=== PATIENT | male | born 1935 | race Caucasian/White ===

== ENCOUNTER 2023-02-28 13:07 | Outpatient (CLI) | payer MEDICARE, SELFPAY ==
--- NOTE | 2023-02-28 13:22 | ECG_ITS ---
Measurements Intervals [place] Rate: 58 P: AK: 0 QRS: 75 QRSD: 117 T: 41 QT: 457 QTc: 450 Interpretive Statements JUNCTIONAL RHYTHM QRS COMPLEXES CHANGES FROM INCOMPLETE RIGHT BUNDLE BRANCH BLOCK TO LBBB ABNORMAL ECG NO PREVIOUS ECG AVAILABLE FOR COMPARISON Electronically Signed On 02-28-2023 14:48:41 CDT by Gulshan Christine D.O.
[2023-02-28 13:54] LABS: INR 1.2; Prothrombin Time 15.3 Seconds (11.1-14.7)
[2023-02-28 13:55] LABS: Partial Thromboplastin Time 31.9 SECONDS (22.3-36.8)
[2023-02-28 13:59] LABS: Anion Gap 9 mmol/L (8-16); Blood Urea Nitrogen 27 mg/dL (9-20); Calcium 8.2 mg/dL (8.4-10.2); Carbon Dioxide 25 mmol/L (22-30); Chloride 101 mmol/L (98-107); Estimated Glomerular Filt Rate 58; Glucose 155 mg/dL (65-110); Potassium 4.8 mmol/L (3.4-5.0); Sodium 135 mmol/L (137-145)
== END 2023-02-28 13:08 | disposition home or self-care (01) ==
LOC: ANHSURGERY 13:16
PROVIDERS: Anesthesiology; PCP Internal Medicine Infectious Disease; Visit Provider Urology
DX: Z51.81 Encounter for therapeutic drug level monitoring (principal); E11.9 Type 2 diabetes mellitus without complications; I10 Essential (primary) hypertension; Z01.818 Encounter for other preprocedural examination
CPT/HCPCS: 36415; 80048; 85610; 85730; 93005

== ENCOUNTER 2023-03-01 01:43 | Day surgery (SDC) | payer MEDICARE, SELFPAY ==
--- NOTE | 2023-02-27 16:22 | PC.NURSE ---
Report to the Outpatient Waiting Room, entrance under the green pavilion located off [facility], at time __9:15AM on date __03/01/23 . Planned Procedure Time: __11:15AM . Time changes happen often and if your time is changed the preop area will call you the afternoon before. - You and your visitor will be asked to self-screen and do not enter if you have any COVID symptoms. - A mask is optional within the hospital at this time. Patients may have clear liquids (water, carbonated beverages, clear teas, apple juice) until 3 hours prior to surgery with a maximum of 20 ounces. - No food from midnight until time of surgery Take the following medications with a SIP of water the morning of surgery: __AMLODIPINE, METOPROLOL DO NOT STOP ANY OF YOUR OTHER PRESCRIPTION MEDICATIONS PRIOR TO SURGERY ?EXCEPT THE FOLLOWING Medications to discontinue per physician ____HOLD COUMADIN 7 DAYS PRE-OP PER DR GRAJEDA- LAST DOSE 02/22/23, HOLD ALL VITAMINS/SUPPLEMENT 3 DAYS PRE-OP- LAST DOSE 02/26/23 PER ANESTHESIA. Please no make-up, nail new zealander, hairspray, perfume, deodorant, or body powder the day of surgery. No jewelry (including any body piercings) or valuables the day of surgery, leave them at home. Please take a shower or bath the night before, or the morning of, surgery with an antibacterial soap. Wear comfortable, loose fitting clothing. Children are encouraged to wear pajamas. - Jewelry must be removed prior to entering the operating room. Rings and piercings that are not removed may be cut off. - The hospital will not accept responsibility for valuables. - Please leave all valuables, including medications, at home the day of surgery. If you are going home after surgery, a licensed commercial driver's license driver must drive you home. - NO public transportation without another adult if you receive anesthesia. - We recommend that an adult stay with you for 24 hours following discharge. - We also recommend that you do not drive, make important decision, drink alcoholic beverages, or take any drugs that were not prescribed by your health care provider for at least 24 hours after your discharge time. Follow any additional instructions given to you from your surgeon. If you or anyone in your household have experienced Covid symptoms in the past week, please notify your surgeon or the nurse liaison at the phone number below for possible testing. Telephone instructions given to __PATIENT and asked if any additional questions and then verbalized understanding. Patient advised to call surgeon office or pre surgery nurse liaison [phone] if any additional questions.
[2023-03-01] VITALS (10 sets, daily range): BP systolic 109–152; BP diastolic 53–90; PULSE 64–75; RESP 11–24; TEMP 36.6–36.8; O2SAT 90–99
--- NOTE | 2023-03-01 06:44 | WPDHPUPDATE1 ---
History and Physical Update Update Date/Time: 03/01/23 06:44 History and Physical has been reviewed, including an updated exam of the patient. There are NO changes in the patient's condition. Risks, benefits, and alternatives have been discussed and questions answered. Patient agrees to proceed with procedure.
[2023-03-01 10:06] LABS: Glucose Point of Care 179 mg/dl (65-105)
[2023-03-01] MEDS: LACTATED RINGERS 1,000 ML 30 ML IV CONT (10:09)
[2023-03-01 10:16] LABS: INR 1.1; Prothrombin Time 14.7 Seconds (11.1-14.7)
--- NOTE | 2023-03-01 10:24 | SUR.PREOP ---
pt with oozing wound to left calf,venous status to lower legs. knee high teds not applied.
--- NOTE | 2023-03-01 10:26 | WPDANESEPPF ---
Anes - Initial Pre Proc Eval Procedure: Operation Date: 03/01/23 11:15 Proposed Procedures p Trans Urethral Resection Bladder Tumor with Gemcitabine Instillation - Robert Cevallos MD Date/Time: 03/01/23 10:26 Surgeon: Robert Cevallos MD Pre Op Diagnosis: bladder tumor Patient Data Age: 87 Gender: M Height: 1.78 m Weight: 95.5 kg Last Vital Signs Temp 36.6 C 03/01/23 09:37 Pulse 64 03/01/23 09:37 Resp 16 03/01/23 09:37 BP 144/58 H 03/01/23 09:37 Pulse Ox 98 03/01/23 09:37 O2 Del Method Room Air 03/01/23 09:37 Allergies Allergy/AdvReac Type Severity Reaction Status Date / Time No Known Allergies Allergy Verified 03/01/23 10:10 Home Medications Medication Instructions Recorded Confirmed Type acetaminophen 500 mg capsule 500 mg PO Q6H PRN Pain 02/27/23 03/01/23 History amlodipine 10 mg tablet 10 mg PO QAM 02/27/23 03/01/23 History cyanocobalamin (vitamin B-12) 1,000 mcg PO DAILY 02/27/23 03/01/23 History 1,000 mcg capsule finasteride 5 mg tablet 5 mg PO QAM 02/27/23 03/01/23 History insulin detemir U-100 100 unit/mL 10 unit subcut HS 02/27/23 03/01/23 History (3 mL) subcutaneous pen (Levemir FlexPen) lisinopril 40 mg tablet 40 mg PO QAM 02/27/23 03/01/23 History metformin 1,000 mg tablet 1,000 mg PO BID 02/27/23 03/01/23 History metoprolol tartrate 25 mg tablet 25 mg PO BID 02/27/23 03/01/23 History oxybutynin chloride 10 mg 10 mg PO QAM 02/27/23 03/01/23 History tablet,extended release 24 hr pravastatin 10 mg tablet 10 mg PO DAILY 02/27/23 03/01/23 History sitagliptin phosphate 100 mg 100 mg PO QAM 02/27/23 03/01/23 History tablet (Januvia) vit A 7,160 unit-vit C 113 mg-vit 1 tablet PO BID 02/27/23 03/01/23 History E 100 [id number] tablet warfarin 3 mg tablet 3 mg PO EVERY OTHER DAY 02/27/23 03/01/23 History warfarin 4 mg tablet 4 mg PO EVERY OTHER DAY 02/27/23 03/01/23 History Laboratory Tests 03/01/23 03/01/23 09:49 10:03 PT 14.7 Seconds (11.1-14.7) INR 1.1 POC Capillary Glucose 179 H mg/dl (65-105) Patient hx anesthesia problems: none Family hx anesthesia problems: none Results Review: All pre-operative results and documents have been reviewed as part of the pre-operative evaluation. [facility] Past Medical History Medical History (Updated 03/01/23 @ 10:26 by Gerhard Travis MD) Bladder cancer CAD (coronary artery disease) HTN (hypertension) ANGELIQUE (obstructive sleep apnea) Surgical History Surgical History (Updated 03/01/23 @ 10:26 by Gerhard Travis MD) Hx of CABG Social History Social History Smoking packs per day: 1.5 Smoking cigarettes per day: 30.0 Years smoked: 25 Smoking pack-years: 37.50 Smoking status: Former smoker Tobacco type: cigarettes Smoking end date: 03/31/74 Substance use: never Living arrangements: with family Additional living arrangements comments: Spiritual care concerns: No Anes - Eval Final PreProcedure Day of Procedure 03/01/23 10:26 Patient weight: obese Heart: irregular rhythm Lungs: clear to auscultation Airway: Mallampati scale class II Neurological: alert and oriented Last oral intake: >/= 8 hours ASA classification: III Emergent: no Anesthetic plan: proceed Anesthesia type and monitoring: general LMA and standard monitoring Results Review: All pre-operative results and documents have been reviewed as part of the pre-operative evaluation. Informed Consent: The patient's anesthetic plan and its attendant risks and benefits were discussed with the patient/family/POA. Questions were solicited and answers provided to the satisfaction of the patient/family/POA.
--- NOTE | 2023-03-01 11:41 | SUR.PREOP ---
pt instructed to talk with primary md about open wound to right lower leg
[2023-03-01] MEDS: ceFAZolin 2 GM/D5W 50 ML 2 GM/50 ML BAG IVPB (11:54)
[2023-03-01] MEDS: SODIUM CHLORIDE 0.9% IV 23.7 ML, GEMCITABINE HCL 1,000 MG BLADDER ×2 (12:23→12:24)
[2023-03-01 12:42] LABS: Glucose Point of Care 172 mg/dl (65-105)
[2023-03-01] MEDS: fentaNYL CITRATE INJ (*CRX) 100 MCG/2 ML VIAL 25 MCG IV PUSH ×2 (12:45→12:50)
--- NOTE | 2023-03-01 12:50 | W.PM.PROC2 ---
Procedure Note - Detailed Date of Procedure 03/01/23 Pre-op Diagnosis Bladder tumor Post-op Diagnosis Same Procedure Performed TURBT medium Surgeon Robert Cevallos MD Anesthesia General Description of Procedure patient was brought to the operative suite was prepped and draped in routine sterile fashion while in dorsal lithotomy position. Twenty-four F resectoscope was placed in his bladder. 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 There was no median lobe. His bladder shows slight trabeculation. The entire bladder mucosa appears perfectly normal with the exception of a somewhat solid, approximately 3 cm neoplastic growth in the right anterior lateral bladder wall. I resected this using the loop electrode with an attempt made to include detrusor muscle for pathological evaluation invasion. The base and periphery cauterized both with the loop and I rollerball electrode. I opted not to do random biopsies given the normal nature of the remainder of his bladder. This neoplasm, although solid, his very well demarcated. It is in a position that would be borderline amenable to a partial cystectomy. Before considering that, if it is muscle invasive, I would recommend re-resection of the bladder tumor base.
--- NOTE | 2023-03-01 12:59 | W.PM.PROC2 ---
Procedure Note - Detailed Date of Procedure 03/01/23 Pre-op Diagnosis Bladder tumor Post-op Diagnosis Same Procedure Performed Gemcitabine installation Surgeon Robert Cevallos MD Anesthesia None Description of Procedure With the patient in the supine position, a 16F Echeverria catheter is placed using sterile technique. Using a protective facemask, gown and double layer of gloves Gemcitabine 2gm in 100cc saline is administered through the catheter/into the bladder. The catheter is then plugged. Patient was instructed to lie supine x20min, then to roll both the left and right x20 min. each. Total dwell time will be 60 min., after which the bladder will be drained and catheter removed.
[2023-03-01] MEDS: ONDANSETRON INJ 4 MG/2 ML VIAL IV PUSH (13:00)
--- NOTE | 2023-03-01 13:56 | SUR.PHASEI ---
1355 - mendez catheter was drained. 170mL output. Pt. was backfilled with 150mL sterile saline and mendez was discontinued at that time. Pt. is currently attempting to void.
== END 2023-03-01 15:04 | disposition home or self-care (01) ==
PROVIDERS: Anesthesiology; PCP Internal Medicine Infectious Disease; Visit Provider Urology
PROC: 0TBB8ZZ Excision of Bladder, Via Natural or Artificial Opening Endoscopic (ICD-10-PCS; CPT 52235; principal; 2023-03-01 11:15)
DX: C67.8 Malignant neoplasm of overlapping sites of bladder (principal); I25.10 Atherosclerotic heart disease of native coronary artery without angina pectoris; I10 Essential (primary) hypertension; G47.33 Obstructive sleep apnea (adult) (pediatric); Z87.891 Personal history of nicotine dependence; E66.9 Obesity, unspecified; Z68.30 Body mass index [BMI] 30.0-30.9, adult; Z79.4 Long term (current) use of insulin; Z79.84 Long term (current) use of oral hypoglycemic drugs; Z79.01 Long term (current) use of anticoagulants
CPT/HCPCS: 52235; 36415; 51720; 82948; 85610; 88305; 88342; J0690; J1100; J2405; J2704; J3010; J7120; J9201

== ENCOUNTER 2023-04-19 01:32 | Day surgery (SDC) | payer MEDICARE, SELFPAY ==
[2023-04-10 12:48] VITALS: BMI 30.7
--- NOTE | 2023-04-10 13:06 | PC.NURSE ---
Report to the Outpatient Waiting Room, entrance under the green pavilion located off [facility], at time __9:00AM on date __04/19/23 . Planned Procedure Time: ___11:00AM . Time changes happen often and if your time is changed the preop area will call you the afternoon before. - You and your visitor will be asked to self-screen and do not enter if you have any COVID symptoms. - A mask is optional within the hospital at this time. Patients may have clear liquids (water, carbonated beverages, clear teas, apple juice) until 3 hours prior to surgery with a maximum of 20 ounces. - No food from midnight until time of surgery Take the following medications with a SIP of water the morning of surgery: ___AMLODIPINE, METOPROLOL DO NOT STOP ANY OF YOUR OTHER PRESCRIPTION MEDICATIONS PRIOR TO SURGERY ?EXCEPT THE FOLLOWING Medications to discontinue per physician __HOLD COUMADIN 7 DAYS PRE-OP PER DR GRAJEDA(PER PT & )- LAST DOSE 04/11/23. HOLD ALL VITAMINS/SUPPLEMENTS 3 DAYS PRE-OP-Date to take last dose____04/15/23 Please no make-up, nail turkmen, hairspray, perfume, deodorant, or body powder the day of surgery. No jewelry (including any body piercings) or valuables the day of surgery, leave them at home. Please take a shower or bath the night before, or the morning of, surgery with an antibacterial soap. Wear comfortable, loose fitting clothing. Children are encouraged to wear pajamas. - Jewelry must be removed prior to entering the operating room. Rings and piercings that are not removed may be cut off. - The hospital will not accept responsibility for valuables. - Please leave all valuables, including medications, at home the day of surgery. If you are going home after surgery, a licensed truck driver rubbish collector must drive you home. - NO public transportation without another adult if you receive anesthesia. - We recommend that an adult stay with you for 24 hours following discharge. - We also recommend that you do not drive, make important decision, drink alcoholic beverages, or take any drugs that were not prescribed by your health care provider for at least 24 hours after your discharge time. Follow any additional instructions given to you from your surgeon. If you or anyone in your household have experienced Covid symptoms in the past week, please notify your surgeon or the nurse liaison at the phone number below for possible testing. Telephone instructions given to __PATIENT & WIFE and asked if any additional questions and then verbalized understanding. Patient advised to call surgeon office or pre surgery nurse liaison [phone] if any additional questions.
--- NOTE | 2023-04-17 06:46 | PM.HPGS ---
History of Present Illness History of Present Illness Consent: Risks, benefits, and alternatives have been discussed and questions answered. Patient agrees to proceed with procedure. Chief complaint: bladder tumor Narrative: Rudy Nino is a 88 year old male who developed gross hematuria in January 2023. CT urogram demonstrated normal upper urinary tracts but a mass in his bladder. 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 After discussion of options he has elected for re-resection of the bladder tumor base. He is aware the risk including, but not limited to, adverse cardiopulmonary events, injury to the integrity of his bladder wall requiring long-term catheterization or open procedure. He is also aware that this may not be a definitive management for muscle invasive bladder cancer and that additional therapy may be needed. Review of Systems Review of Systems: All systems reviewed & are unremarkable except as noted in HPI and below PMFSH Past Medical History Medical History (Updated 03/01/23 @ 12:58 by Robert Cevallos MD) Bladder cancer CAD (coronary artery disease) HTN (hypertension) ANGELIQUE (obstructive sleep apnea) Surgical History Surgical History (Updated 03/01/23 @ 10:26 by Gerhard Travis MD) Hx of CABG Social History Social History Smoking packs per day: 1.5 Smoking cigarettes per day: 30.0 Years smoked: 30 Smoking pack-years: 45.00 Smoking status: Former smoker Tobacco type: cigarettes Smoking end date: 03/31/74 Substance use: never Living arrangements: with family Additional living arrangements comments: Spiritual care concerns: No Meds Home Medications and Allergies Home Medications Medication Instructions Recorded Confirmed Type acetaminophen 500 mg capsule 500 mg PO Q6H PRN Pain 02/27/23 04/10/23 History amlodipine 10 mg tablet 10 mg PO QAM 02/27/23 04/10/23 History cyanocobalamin (vitamin B-12) 1,000 mcg PO DAILY 02/27/23 04/10/23 History 1,000 mcg capsule finasteride 5 mg tablet 5 mg PO QAM 02/27/23 04/10/23 History insulin detemir U-100 100 unit/mL 10 unit subcut HS 02/27/23 04/10/23 History (3 mL) subcutaneous pen (Levemir FlexPen) lisinopril 40 mg tablet 40 mg PO QAM 02/27/23 04/10/23 History metformin 1,000 mg tablet 1,000 mg PO BID 02/27/23 04/10/23 History metoprolol tartrate 25 mg tablet 25 mg PO BID 02/27/23 04/10/23 History oxybutynin chloride 10 mg 10 mg PO QAM 02/27/23 04/10/23 History tablet,extended release 24 hr pravastatin 10 mg tablet 10 mg PO DAILY 02/27/23 04/10/23 History sitagliptin phosphate 100 mg 100 mg PO QAM 02/27/23 04/10/23 History tablet (Januvia) vit A 7,160 unit-vit C 113 mg-vit 1 tablet PO BID 02/27/23 04/10/23 History E 100 [id number] tablet warfarin 3 mg tablet 3 mg PO EVERY OTHER DAY 02/27/23 04/10/23 History warfarin 4 mg tablet 4 mg PO EVERY OTHER DAY 02/27/23 04/10/23 History hydrocodone 5 mg-acetaminophen 325 1 - 2 tablet PO Q6H PRN pain #20 03/01/23 04/10/23 Rx mg tablet tabs Allergies Allergy/AdvReac Type Severity Reaction Status Date / Time atorvastatin AdvReac Muscle Pain Verified 04/10/23 12:36 Exam Const: General: no acute distress Resp: Effort & Inspection: normal respiratory effort GI: Inspection: non-distended GI Palp: No abdominal tenderness and No Guarding due to palpation present (GI) Auscultation: normal bowel sounds Assessment and Plan Assessment and plan (1) Cancer of overlapping sites of bladder: Code(s): C67.8 - Malignant neoplasm of overlapping sites of bladder Status: Acute Assessment and Plan: Re-resection bladder tumor base
[2023-04-19] VITALS (8 sets, daily range): BP systolic 114–142; BP diastolic 54–90; PULSE 53–62; RESP 14–20; TEMP 36.4; O2SAT 97–99
--- NOTE | 2023-04-19 04:43 | WPDHPUPDATE1 ---
History and Physical Update Update Date/Time: 04/19/23 04:43 History and Physical has been reviewed, including an updated exam of the patient. There are NO changes in the patient's condition. Risks, benefits, and alternatives have been discussed and questions answered. Patient agrees to proceed with procedure.
--- NOTE | 2023-04-19 09:45 | WPDANESEPPF ---
Anes - Initial Pre Proc Eval Procedure: Operation Date: 04/19/23 11:00 Proposed Procedures p Re-Resection Of Bladder Tumor - Robert Cevallos MD Date/Time: 04/19/23 09:45 Surgeon: Robert Cevallos MD Pre Op Diagnosis: bladder tumor Patient Data Age: 88 Gender: M Height: 1.78 m Weight: 97 kg Allergies Allergy/AdvReac Type Severity Reaction Status Date / Time atorvastatin AdvReac Muscle Pain Verified 04/10/23 12:36 Home Medications Medication Instructions Recorded Confirmed Type acetaminophen 500 mg capsule 500 mg PO Q6H PRN Pain 02/27/23 04/10/23 History amlodipine 10 mg tablet 10 mg PO QAM 02/27/23 04/19/23 History cyanocobalamin (vitamin B-12) 1,000 mcg PO DAILY 02/27/23 04/19/23 History 1,000 mcg capsule finasteride 5 mg tablet 5 mg PO QAM 02/27/23 04/19/23 History insulin detemir U-100 100 unit/mL 10 unit subcut HS 02/27/23 04/19/23 History (3 mL) subcutaneous pen (Levemir FlexPen) lisinopril 40 mg tablet 40 mg PO QAM 02/27/23 04/19/23 History metformin 1,000 mg tablet 1,000 mg PO BID 02/27/23 04/19/23 History metoprolol tartrate 25 mg tablet 25 mg PO BID 02/27/23 04/19/23 History oxybutynin chloride 10 mg 10 mg PO QAM 02/27/23 04/19/23 History tablet,extended release 24 hr pravastatin 10 mg tablet 10 mg PO DAILY 02/27/23 04/19/23 History sitagliptin phosphate 100 mg 100 mg PO QAM 02/27/23 04/19/23 History tablet (Januvia) vit A 7,160 unit-vit C 113 mg-vit 1 tablet PO BID 02/27/23 04/19/23 History E 100 [id number] tablet warfarin 3 mg tablet 3 mg PO EVERY OTHER DAY 02/27/23 04/19/23 History warfarin 4 mg tablet 4 mg PO EVERY OTHER DAY 02/27/23 04/19/23 History hydrocodone 5 mg-acetaminophen 325 1 - 2 tablet PO Q6H PRN pain #20 03/01/23 04/10/23 Rx mg tablet tabs Patient hx anesthesia problems: none Family hx anesthesia problems: none Results Review: All pre-operative results and documents have been reviewed as part of the pre-operative evaluation. [facility] Past Medical History Medical History (Updated 03/01/23 @ 12:58 by Robert Cevallos MD) Bladder cancer CAD (coronary artery disease) HTN (hypertension) ANGELIQUE (obstructive sleep apnea) Surgical History Surgical History (Updated 03/01/23 @ 10:26 by Gerhard Travis MD) Hx of CABG Social History Social History Smoking packs per day: 1.5 Smoking cigarettes per day: 30.0 Years smoked: 30 Smoking pack-years: 45.00 Smoking status: Former smoker Tobacco type: cigarettes Smoking end date: 03/31/74 Substance use: never Living arrangements: with family Additional living arrangements comments: Spiritual care concerns: No Anes - Eval Final PreProcedure Day of Procedure 04/19/23 09:45 Patient weight: obese Heart: regular rate and rhythm Lungs: clear to auscultation Airway: Mallampati scale class II Neurological: alert and oriented Last oral intake: >/= 8 hours ASA classification: III Emergent: no Anesthetic plan: proceed Anesthesia type and monitoring: general LMA and standard monitoring Results Review: All pre-operative results and documents have been reviewed as part of the pre-operative evaluation. Informed Consent: The patient's anesthetic plan and its attendant risks and benefits were discussed with the patient/family/POA. Questions were solicited and answers provided to the satisfaction of the patient/family/POA.
[2023-04-19] MEDS: LACTATED RINGERS 1,000 ML 30 ML IV CONT (09:50)
[2023-04-19 10:06] LABS: Glucose Point of Care 195 mg/dl (65-105)
[2023-04-19 10:20] LABS: INR 1.1; Prothrombin Time 14.8 Seconds (11.1-14.7)
[2023-04-19 10:21] LABS: Partial Thromboplastin Time 31.8 SECONDS (22.3-36.8)
[2023-04-19] MEDS: ceFAZolin 2 GM/D5W 50 ML 2 GM/50 ML BAG IVPB (10:24)
[2023-04-19] MEDS: LIDOCAINE HCL 2% GEL UROJET 10 ML PKG MUCOUS MEM (10:46)
--- NOTE | 2023-04-19 10:47 | P.OP_ITS ---
Procedure Note - Detailed Date of Procedure 04/19/23 Pre-op Diagnosis History of bladder tumor Post-op Diagnosis Other ( No gross recurrent bladder tumors) Procedure Performed Re-resection bladder tumor base Surgeon Robret Cevallos MD Anesthesia General Description of Procedure Patient is brought to the op suite was prepped draped in routine sterile fashion while in dorsal lithotomy position. 2% xylocaine jelly was introduced intraurethrally and general anesthesia administered per the anesthesia departme nt. Twenty-four F resectoscope was placed in his bladder. He has lateral lobe hyperplasia with a small median lobe. The bladder itself is absolutely normal today. The mucosa is normal without any evidence of recurrent neoplasm. A single orthotopic ureteral orifice with clear reflux. I did obtain some tissue via a 24 F resectoscope from the right anterior lateral bladder wall at the site of his previous resection. The base and periphery was cauterized with the loop electrode. He tolerated the procedure well and was taken recovery in good condition. Drains No Packing No Pathology Yes Complications No immediate complications Condition Stable
[2023-04-19 11:00] LABS: Glucose Point of Care 200 mg/dl (65-105)
== END 2023-04-19 12:20 | disposition home or self-care (01) ==
PROVIDERS: Anesthesiology; PCP Internal Medicine Infectious Disease; Visit Provider Urology
PROC: 0TBB8ZZ Excision of Bladder, Via Natural or Artificial Opening Endoscopic (ICD-10-PCS; CPT 52234; principal; 2023-04-19 11:00)
DX: C67.8 Malignant neoplasm of overlapping sites of bladder (principal); I25.10 Atherosclerotic heart disease of native coronary artery without angina pectoris; I10 Essential (primary) hypertension; G47.33 Obstructive sleep apnea (adult) (pediatric); Z87.891 Personal history of nicotine dependence; Z79.4 Long term (current) use of insulin; Z79.84 Long term (current) use of oral hypoglycemic drugs; Z79.01 Long term (current) use of anticoagulants; Z95.1 Presence of aortocoronary bypass graft; E66.9 Obesity, unspecified; Z68.29 Body mass index [BMI] 29.0-29.9, adult
CPT/HCPCS: 52234; 36415; 82948; 85610; 85730; 88305; 88342; J0690; J1100; J2405; J2704; J3010; J7120